=== PATIENT | male | born 1990 | race Hispanic/Latino ===

== ENCOUNTER → 2016-06-17 | Outpatient (CLI) | payer OTHER ==
--- NOTE | 2016-06-17 11:56 | Diagnostic Imaging Report ---
Scrotal ultrasound. INDICATION: Right scrotal pain. FINDINGS: The right testicle is 4.4 x 2.2 x 3.1 cm. The left testicle is 4.4 x 2.2 x 2.8 cm. The testicles have normal echogenicity, and arterial waveforms are demonstrated in both testicles. There is no solid mass or fluid collection or significant hydrocele seen. No varicocele seen. IMPRESSION: Unremarkable exam. Dictated by: Dictated on workstation # [id number]
== END ==
LOC: RAD 10:45
DX: S39.94XA Unspecified injury of external genitals, initial encounter (principal); S39.91XA Unspecified injury of abdomen, initial encounter; X50.0XXA Overexertion from strenuous movement or load, initial encounter
CPT/HCPCS: 76870